=== PATIENT | male | born 1985 | race Hispanic/Latino ===

== ENCOUNTER 2025-06-25 06:16 | Day surgery (SDC) | payer OTHER, SELFPAY ==
[2025-06-07 11:32] LABS: Hematocrit 46.9 % (39.0-52.0); Hemoglobin 15.6 g/dL (13.0-18.0); Mean Corp Hgb Conc. 33.3 g/dL (33.0-37.0); Mean Corpuscular Volume 91.1 fL (80.0-94.0); Platelet Count 323 10^3/uL (130-400); Red Cell Dist. Width 12.9 % (11.5-14.5)
[2025-06-07 12:37] LABS: Blood Urea Nitrogen 21 mg/dl (9-20); Calcium 10.1 mg/dl (8.4-10.2); Carbon Dioxide 28 mmol/L (22-30); Chloride 103 mmol/L (98-107); Glucose 85 mg/dl (70-99); Potassium 4.6 mmol/L (3.5-5.1); Sodium 140 mmol/L (135-145); eGFR > 60.00
[2025-06-07 14:14] VITALS: BMI 49.1
[2025-06-25] VITALS (7 sets, daily range): BP systolic 15–140; BP diastolic 59–88; BMI 49.1
[2025-06-25] MEDS: NORMOSOL-R/PLASMALYTE-A 1000 IV (12:22)
== END 2025-06-25 15:54 | disposition home or self-care (01) ==
LOC: SDS 06:16
PROVIDERS: ATTENDING PHYSICIAN Podiatrist Foot & Ankle Surgery; FAMILY PHYSICIAN Family Medicine
DX: M20.21 Hallux rigidus, right foot (principal); M20.5X1 Other deformities of toe(s) (acquired), right foot
CPT/HCPCS: 28289; 36415; 80048; 85027; 88304; 88311